=== PATIENT | male | born 1980 | race Caucasian/White ===

== ENCOUNTER 2021-10-11 05:36 | Inpatient (IN) | payer OTHER ==
[2021-10-11 09:05] LABS: BASO % 0.6 % (0-2.0); EOS % 0.1 % (0-4.5); HEMATOCRIT 30.7 % (35.4-49); HEMOGLOBIN 9.9 GM/dL (11.7-16.9); LYMPH % 7.8 % (8-40); MCH 26.7 pg (25.7-33.7); MCHC 32.2 g/dl (32.0-35.9); MEAN CELL VOLUME 83.1 fl (80-96); MEAN PLT VOLUME 7.5 fl (7.5-11.1); MONO % 10.1 % (3.8-10.2); NEUT % 81.4 % (42.8-82.8); PLATELET COUNT 481 10^3/uL (134-434); RBC 3.69 M/mm3 (4.00-5.60); RDW 14.9 % (11.9-15.9); WHITE BLOOD COUNT 13.1 K/mm3 (4.0-10.0)
[2021-10-11 09:13] LABS: INR 1.45 (0.83-1.09); PROTHROMBIN TIME (PATIENT) 16.7 SEC (9.7-13.0)
[2021-10-11] MEDS ORDERED: ENOXAPARIN NA (PORCINE) 40 MG/0.4 ML DISP.SYRIN SQ SCH (10:00)
[2021-10-11 10:01] LABS: CHLORIDE 99 mmol/L (98-107); SODIUM 133 mmol/L (136-145)
[2021-10-11 10:15] LABS: ALBUMIN 2.4 g/dl (3.4-5.0); BLOOD UREA NITROGEN 8.3 mg/dL (7-18); CALCIUM 8.8 mg/dL (8.5-10.1); GLUCOSE,RANDOM 118 mg/dL (74-106)
[2021-10-11 10:18] LABS: ANION GAP 6 MMOL/L (8-16); CO2 27 mmol/L (21-32); CREATININE 0.6 mg/dL (0.55-1.3); SGOT/AST 36 U/L (15-37); SGPT/ALT 27 U/L (13-61)
[2021-10-11 10:20] LABS: BILIRUBIN,TOTAL 0.5 mg/dL (0.2-1); TOT PROT 7.9 g/dl (6.4-8.2)
[2021-10-11 10:21] LABS: ALK PHOS 139 U/L (45-117)
[2021-10-11 10:38] LABS: HIV INTERPRETATION NEGATIVE (NEGATIVE)
[2021-10-11] MEDS ORDERED: SODIUM CHLORIDE 1,000 ML IV SCH (11:00)
[2021-10-11] MEDS ORDERED: AZITHROMYCIN IVPB 500 MG/250 ML BAG IVPB SCH (13:00)
[2021-10-11] MEDS: INSULIN SLIDING SCALE (NOVOLOG) 1 VIAL SQ SCH ×2 (18:00→18:54)
[2021-10-11] MEDS: CEFTRIAXONE 1 GM in DEXTROSE 5%-WATER - 50 ML IVPB SCH (18:00)
[2021-10-11] MEDS ORDERED: CEFTRIAXONE 1 GM/50 ML BAG ONE (18:38)
[2021-10-12] MEDS: INSULIN SLIDING SCALE (NOVOLOG) 1 VIAL SQ SCH ×4 (07:14→21:45)
[2021-10-12 09:10] LABS: EPI CELLS 10 /uL (0-25.1); HYALINE CASTS 2 /uL (0-3.1); PH,URINE 6.5 (5.0-8.0); URINE APPEARANCE CLEAR; URINE BACTERIA 2 /uL (0-1359); URINE BILIRUBIN NEGATIVE (NEGATIVE); URINE COLOR YELLOW; URINE GLUCOSE (UA) NEGATIVE (NEGATIVE); URINE KETONE 1+ (NEGATIVE); URINE LEUK ESTERASE NEGATIVE (NEGATIVE); URINE NITRITE NEGATIVE (NEGATIVE); URINE PROTEIN 1+ (NEGATIVE); URINE RBC 26 /uL (0-23.9); URINE WBC 9 /uL (0-25.8)
[2021-10-12] MEDS ORDERED: cefTRIAXone SODIUM 1 GM VIAL ONE (09:28)
[2021-10-12] MEDS ORDERED: DEXTROSE 5%-WATER - 50 ML IVPB ONE (09:28)
[2021-10-12] MEDS ORDERED: SODIUM CHLORIDE 0.9% 500 ML INFUS.BAG IV ONE (09:30)
[2021-10-12] MEDS: CEFTRIAXONE 1 GM in DEXTROSE 5%-WATER - 50 ML IVPB SCH (09:47)
[2021-10-12 09:55] LABS: BASO % 0.9 % (0-2.0); HEMATOCRIT 27.5 % (35.4-49); LYMPH % 12.6 % (8-40); MCH 27.6 pg (25.7-33.7); MCHC 32.9 g/dl (32.0-35.9); MEAN PLT VOLUME 7.5 fl (7.5-11.1); MONO % 12.5 % (3.8-10.2); PLATELET COUNT 493 10^3/uL (134-434); RBC 3.27 M/mm3 (4.00-5.60); WHITE BLOOD COUNT 10.3 K/mm3 (4.0-10.0)
[2021-10-12 10:10] LABS: CALCIUM 8.3 mg/dL (8.5-10.1)
[2021-10-12 10:11] LABS: ALBUMIN 2.2 g/dl (3.4-5.0); BLOOD UREA NITROGEN 7.5 mg/dL (7-18)
[2021-10-12 10:13] LABS: CREATININE 0.3 mg/dL (0.55-1.3); MAGNESIUM 2.3 mg/dL (1.8-2.4); PHOSPHOROUS 3.5 mg/dL (2.5-4.9)
[2021-10-12 10:15] LABS: BILIRUBIN,TOTAL 0.4 mg/dL (0.2-1); TOT PROT 7.1 g/dl (6.4-8.2)
[2021-10-12] MEDS: SODIUM CHLORIDE 1,000 ML IV SCH (17:41)
[2021-10-13] MEDS: SODIUM CHLORIDE 1,000 ML IV SCH ×2 (03:57→14:51)
[2021-10-13] MEDS: INSULIN SLIDING SCALE (NOVOLOG) 1 VIAL SQ SCH ×4 (06:25→21:08)
[2021-10-13 10:44] LABS: BASO % 0.8 % (0-2.0); EOS % 0.9 % (0-4.5); HEMATOCRIT 27.1 % (35.4-49); HEMOGLOBIN 8.7 GM/dL (11.7-16.9); LYMPH % 13.5 % (8-40); MCH 27.1 pg (25.7-33.7); MCHC 32.3 g/dl (32.0-35.9); MEAN CELL VOLUME 84.1 fl (80-96); MEAN PLT VOLUME 7.5 fl (7.5-11.1); MONO % 11.2 % (3.8-10.2); NEUT % 73.6 % (42.8-82.8); PLATELET COUNT 510 10^3/uL (134-434); RBC 3.22 M/mm3 (4.00-5.60); WHITE BLOOD COUNT 9.8 K/mm3 (4.0-10.0)
[2021-10-13 11:09] LABS: CALCIUM 8.6 mg/dL (8.5-10.1)
[2021-10-13] MEDS ORDERED: cefTRIAXone SODIUM 1 GM VIAL ONE (11:09)
[2021-10-13] MEDS ORDERED: DEXTROSE 5%-WATER - 50 ML IVPB ONE (11:09)
[2021-10-13 11:10] LABS: MAGNESIUM 2.1 mg/dL (1.8-2.4)
[2021-10-13 11:12] LABS: CREATININE 0.4 mg/dL (0.55-1.3)
[2021-10-13 11:13] LABS: PHOSPHOROUS 3.2 mg/dL (2.5-4.9)
[2021-10-13] MEDS: CEFTRIAXONE 1 GM in DEXTROSE 5%-WATER - 50 ML IVPB SCH (11:13)
[2021-10-13 11:14] LABS: BILIRUBIN,TOTAL 0.2 mg/dL (0.2-1); TOT PROT 6.8 g/dl (6.4-8.2)
[2021-10-13 20:49] VITALS: BMI 19.1
[2021-10-14] MEDS: INSULIN SLIDING SCALE (NOVOLOG) 1 VIAL SQ SCH ×2 (06:22→11:24)
[2021-10-14] MEDS: ISONIAZID 300 MG TABLET (FP) PO SCH (09:58)
[2021-10-14] MEDS: ETHAMBUTOL HCL 400 MG TABLET PO SCH (09:58)
[2021-10-14] MEDS: PYRIDOXINE HCL (B-6) 50 MG TABLET (FP) PO SCH (09:59)
[2021-10-14] MEDS: PYRAZINAMIDE 500 MG TABLET PO SCH (10:00)
[2021-10-14 10:09] LABS: BASO % 0.6 % (0-2.0); EOS % 0.8 % (0-4.5); HEMATOCRIT 28.4 % (35.4-49); HEMOGLOBIN 9.1 GM/dL (11.7-16.9); LYMPH % 11.5 % (8-40); MCHC 32.1 g/dl (32.0-35.9); MEAN CELL VOLUME 84.1 fl (80-96); MEAN PLT VOLUME 7.3 fl (7.5-11.1); NEUT % 77.1 % (42.8-82.8); PLATELET COUNT 587 10^3/uL (134-434); RBC 3.37 M/mm3 (4.00-5.60); RDW 15.1 % (11.9-15.9); WHITE BLOOD COUNT 10.8 K/mm3 (4.0-10.0)
[2021-10-14 10:27] LABS: CALCIUM 8.9 mg/dL (8.5-10.1)
[2021-10-14 10:28] LABS: ALBUMIN 2.2 g/dl (3.4-5.0); BLOOD UREA NITROGEN 4.9 mg/dL (7-18); MAGNESIUM 2.2 mg/dL (1.8-2.4)
[2021-10-14 10:31] LABS: CREATININE 0.5 mg/dL (0.55-1.3); PHOSPHOROUS 3.6 mg/dL (2.5-4.9)
[2021-10-14 10:32] LABS: BILIRUBIN,TOTAL 0.2 mg/dL (0.2-1); TOT PROT 7.2 g/dl (6.4-8.2)
[2021-10-14] MEDS: RIFAMPIN 300 MG CAPSULE PO SCH (10:43)
[2021-10-15 09:27] LABS: BASO % 0.6 % (0-2.0); EOS % 0.5 % (0-4.5); HEMATOCRIT 28.9 % (35.4-49); HEMOGLOBIN 9.7 GM/dL (11.7-16.9); LYMPH % 14.7 % (8-40); MCH 27.9 pg (25.7-33.7); MCHC 33.6 g/dl (32.0-35.9); MEAN CELL VOLUME 82.9 fl (80-96); MEAN PLT VOLUME 6.8 fl (7.5-11.1); MONO % 10.4 % (3.8-10.2); NEUT % 73.8 % (42.8-82.8); PLATELET COUNT 612 10^3/uL (134-434); RBC 3.49 M/mm3 (4.00-5.60); RDW 14.9 % (11.9-15.9)
[2021-10-15 09:47] LABS: ALBUMIN 2.5 g/dl (3.4-5.0); BLOOD UREA NITROGEN 9.2 mg/dL (7-18); CALCIUM 9.1 mg/dL (8.5-10.1); MAGNESIUM 2.3 mg/dL (1.8-2.4)
[2021-10-15 09:51] LABS: CREATININE 0.5 mg/dL (0.55-1.3)
[2021-10-15 09:53] LABS: BILIRUBIN,TOTAL 0.4 mg/dL (0.2-1); TOT PROT 7.7 g/dl (6.4-8.2)
[2021-10-15] MEDS: PYRIDOXINE HCL (B-6) 50 MG TABLET (FP) PO SCH (10:18)
[2021-10-15] MEDS: ISONIAZID 300 MG TABLET (FP) PO SCH (10:18)
[2021-10-15] MEDS: ETHAMBUTOL HCL 400 MG TABLET PO SCH (10:20)
[2021-10-15] MEDS: PYRAZINAMIDE 500 MG TABLET PO SCH (10:20)
[2021-10-15] MEDS: RIFAMPIN 300 MG CAPSULE PO SCH (10:21)
[2021-10-15] MEDS: BENZOCAINE/MENTHOL 1 EACH LOZENGE MM PRN (15:50)
[2021-10-16 08:41] LABS: BASO % 0.6 % (0-2.0); EOS % 1.7 % (0-4.5); HEMATOCRIT 28.6 % (35.4-49); HEMOGLOBIN 9.4 GM/dL (11.7-16.9); LYMPH % 15.1 % (8-40); MCH 27.4 pg (25.7-33.7); MEAN CELL VOLUME 83.2 fl (80-96); MEAN PLT VOLUME 6.8 fl (7.5-11.1); MONO % 10.7 % (3.8-10.2); NEUT % 71.9 % (42.8-82.8); PLATELET COUNT 670 10^3/uL (134-434); RBC 3.43 M/mm3 (4.00-5.60); RDW 15.2 % (11.9-15.9); WHITE BLOOD COUNT 11.6 K/mm3 (4.0-10.0)
[2021-10-16 08:49] LABS: CALCIUM 8.9 mg/dL (8.5-10.1)
[2021-10-16 08:50] LABS: ALBUMIN 2.5 g/dl (3.4-5.0); MAGNESIUM 2.4 mg/dL (1.8-2.4)
[2021-10-16 08:53] LABS: CREATININE 0.5 mg/dL (0.55-1.3); PHOSPHOROUS 3.8 mg/dL (2.5-4.9)
[2021-10-16 08:54] LABS: BILIRUBIN,TOTAL 0.5 mg/dL (0.2-1); TOT PROT 7.8 g/dl (6.4-8.2)
[2021-10-16] MEDS: ISONIAZID 300 MG TABLET (FP) PO SCH (09:55)
[2021-10-16] MEDS: ETHAMBUTOL HCL 400 MG TABLET PO SCH (09:55)
[2021-10-16] MEDS: PYRIDOXINE HCL (B-6) 50 MG TABLET (FP) PO SCH (09:56)
[2021-10-16] MEDS: PYRAZINAMIDE 500 MG TABLET PO SCH (09:56)
[2021-10-16] MEDS: RIFAMPIN 300 MG CAPSULE PO SCH (09:56)
[2021-10-17 10:04] LABS: BASO % 0.7 % (0-2.0); EOS % 1.5 % (0-4.5); HEMATOCRIT 31.1 % (35.4-49); LYMPH % 14.2 % (8-40); MCHC 32.1 g/dl (32.0-35.9); MEAN CELL VOLUME 84.2 fl (80-96); MEAN PLT VOLUME 7.1 fl (7.5-11.1); MONO % 7.3 % (3.8-10.2); NEUT % 76.3 % (42.8-82.8); PLATELET COUNT 730 10^3/uL (134-434); RBC 3.69 M/mm3 (4.00-5.60); WHITE BLOOD COUNT 11.2 K/mm3 (4.0-10.0)
[2021-10-17] MEDS ORDERED: ONDANSETRON 4 MG/2 ML VIAL IVPUSH PRN (10:21)
[2021-10-17] MEDS: PYRAZINAMIDE 500 MG TABLET PO SCH (10:36)
[2021-10-17] MEDS: ETHAMBUTOL HCL 400 MG TABLET PO SCH (10:37)
[2021-10-17] MEDS: PYRIDOXINE HCL (B-6) 50 MG TABLET (FP) PO SCH (10:38)
[2021-10-17] MEDS: ISONIAZID 300 MG TABLET (FP) PO SCH (10:38)
[2021-10-17] MEDS: RIFAMPIN 300 MG CAPSULE PO SCH (10:39)
[2021-10-17] MEDS: BENZOCAINE/MENTHOL 1 EACH LOZENGE MM PRN (10:41)
[2021-10-17 11:12] LABS: BLOOD UREA NITROGEN 8.7 mg/dL (7-18)
[2021-10-17 11:13] LABS: CALCIUM 9.4 mg/dL (8.5-10.1)
[2021-10-17 11:14] LABS: ALBUMIN 2.6 g/dl (3.4-5.0); MAGNESIUM 2.4 mg/dL (1.8-2.4)
[2021-10-17 11:16] LABS: PHOSPHOROUS 4.3 mg/dL (2.5-4.9)
[2021-10-17 11:17] LABS: CREATININE 0.5 mg/dL (0.55-1.3)
[2021-10-17 11:18] LABS: BILIRUBIN,TOTAL 0.2 mg/dL (0.2-1); TOT PROT 8.2 g/dl (6.4-8.2)
[2021-10-18] MEDS: SODIUM CHLORIDE 1,000 ML IV SCH ×2 (09:32→21:29)
[2021-10-18] MEDS: ETHAMBUTOL HCL 400 MG TABLET PO SCH (09:33)
[2021-10-18] MEDS: ISONIAZID 300 MG TABLET (FP) PO SCH (09:33)
[2021-10-18] MEDS: RIFAMPIN 300 MG CAPSULE PO SCH (09:34)
[2021-10-18] MEDS: PYRAZINAMIDE 500 MG TABLET PO SCH (09:34)
[2021-10-18] MEDS: PYRIDOXINE HCL (B-6) 50 MG TABLET (FP) PO SCH (09:34)
[2021-10-18] MEDS: BENZOCAINE/MENTHOL 1 EACH LOZENGE MM PRN (09:36)
[2021-10-18 09:56] LABS: BASO % 0.5 % (0-2.0); EOS % 1.5 % (0-4.5); HEMOGLOBIN 8.9 GM/dL (11.7-16.9); LYMPH % 13.3 % (8-40); MCH 26.9 pg (25.7-33.7); MCHC 31.9 g/dl (32.0-35.9); MEAN CELL VOLUME 84.3 fl (80-96); MEAN PLT VOLUME 6.9 fl (7.5-11.1); NEUT % 78.7 % (42.8-82.8); PLATELET COUNT 763 10^3/uL (134-434); RBC 3.32 M/mm3 (4.00-5.60); RDW 15.1 % (11.9-15.9); WHITE BLOOD COUNT 11.3 K/mm3 (4.0-10.0)
[2021-10-18 10:23] LABS: ALBUMIN 2.4 g/dl (3.4-5.0); CALCIUM 8.9 mg/dL (8.5-10.1); MAGNESIUM 2.2 mg/dL (1.8-2.4)
[2021-10-18 10:26] LABS: CREATININE 0.6 mg/dL (0.55-1.3)
[2021-10-18 10:28] LABS: BILIRUBIN,TOTAL 0.2 mg/dL (0.2-1); TOT PROT 7.3 g/dl (6.4-8.2)
[2021-10-19] MEDS: SODIUM CHLORIDE 1,000 ML IV SCH ×2 (06:45→10:44)
[2021-10-19 08:56] LABS: BASO % 0.7 % (0-2.0); EOS % 2.4 % (0-4.5); HEMATOCRIT 27.4 % (35.4-49); HEMOGLOBIN 9.1 GM/dL (11.7-16.9); LYMPH % 14.6 % (8-40); MCHC 33.4 g/dl (32.0-35.9); MEAN CELL VOLUME 83.8 fl (80-96); MEAN PLT VOLUME 6.5 fl (7.5-11.1); MONO % 6.8 % (3.8-10.2); NEUT % 75.5 % (42.8-82.8); PLATELET COUNT 713 10^3/uL (134-434); RBC 3.26 M/mm3 (4.00-5.60); RDW 15.2 % (11.9-15.9)
[2021-10-19 09:08] LABS: ALBUMIN 2.2 g/dl (3.4-5.0); BLOOD UREA NITROGEN 4.6 mg/dL (7-18); CALCIUM 8.8 mg/dL (8.5-10.1)
[2021-10-19 09:09] LABS: MAGNESIUM 2.1 mg/dL (1.8-2.4)
[2021-10-19 09:11] LABS: CREATININE 0.4 mg/dL (0.55-1.3); PHOSPHOROUS 4.1 mg/dL (2.5-4.9)
[2021-10-19 09:13] LABS: BILIRUBIN,TOTAL 0.2 mg/dL (0.2-1); TOT PROT 6.9 g/dl (6.4-8.2)
[2021-10-19] MEDS: PYRAZINAMIDE 500 MG TABLET PO SCH (10:45)
[2021-10-19] MEDS: PYRIDOXINE HCL (B-6) 50 MG TABLET (FP) PO SCH (10:45)
[2021-10-19] MEDS: ETHAMBUTOL HCL 400 MG TABLET PO SCH (10:45)
[2021-10-19] MEDS: ISONIAZID 300 MG TABLET (FP) PO SCH (10:45)
[2021-10-19] MEDS: RIFAMPIN 300 MG CAPSULE PO SCH (10:46)
[2021-10-19] MEDS ORDERED: SODIUM CHLORIDE 250 ML IV STA (14:03)
[2021-10-20] MEDS: SODIUM CHLORIDE 1,000 ML IV SCH ×3 (04:49→21:37)
[2021-10-20 08:54] LABS: BASO % 0.4 % (0-2.0); HEMATOCRIT 29.9 % (35.4-49); HEMOGLOBIN 10.1 GM/dL (11.7-16.9); LYMPH % 16.3 % (8-40); MCH 28.4 pg (25.7-33.7); MCHC 33.7 g/dl (32.0-35.9); MEAN CELL VOLUME 84.2 fl (80-96); MEAN PLT VOLUME 6.7 fl (7.5-11.1); MONO % 6.1 % (3.8-10.2); NEUT % 75.2 % (42.8-82.8); PLATELET COUNT 787 10^3/uL (134-434); RBC 3.55 M/mm3 (4.00-5.60); RDW 15.4 % (11.9-15.9); WHITE BLOOD COUNT 13.3 K/mm3 (4.0-10.0)
[2021-10-20 08:56] LABS: ALBUMIN 2.5 g/dl (3.4-5.0); CALCIUM 8.8 mg/dL (8.5-10.1)
[2021-10-20 08:59] LABS: CREATININE 0.5 mg/dL (0.55-1.3)
[2021-10-20 09:00] LABS: BLOOD UREA NITROGEN 5.8 mg/dL (7-18); MAGNESIUM 2.1 mg/dL (1.8-2.4)
[2021-10-20 09:01] LABS: BILIRUBIN,TOTAL 0.2 mg/dL (0.2-1); TOT PROT 7.7 g/dl (6.4-8.2)
[2021-10-20 09:02] LABS: PHOSPHOROUS 4.3 mg/dL (2.5-4.9)
[2021-10-20] MEDS: ETHAMBUTOL HCL 400 MG TABLET PO SCH (10:06)
[2021-10-20] MEDS: ISONIAZID 300 MG TABLET (FP) PO SCH (10:06)
[2021-10-20] MEDS: PYRAZINAMIDE 500 MG TABLET PO SCH (10:07)
[2021-10-20] MEDS: RIFAMPIN 300 MG CAPSULE PO SCH (10:09)
[2021-10-20] MEDS: PYRIDOXINE HCL (B-6) 50 MG TABLET (FP) PO SCH (10:09)
[2021-10-21] MEDS ORDERED: POLYETHYLENE GLYCOL (HEALTHYLAX) 3350 17 GM PACKET PO PRN (08:31)
[2021-10-21 09:58] LABS: BASO % 0.6 % (0-2.0); EOS % 1.9 % (0-4.5); HEMATOCRIT 28.2 % (35.4-49); HEMOGLOBIN 9.1 GM/dL (11.7-16.9); LYMPH % 11.3 % (8-40); MCH 27.5 pg (25.7-33.7); MCHC 32.5 g/dl (32.0-35.9); MEAN CELL VOLUME 84.7 fl (80-96); MEAN PLT VOLUME 6.9 fl (7.5-11.1); MONO % 5.4 % (3.8-10.2); NEUT % 80.8 % (42.8-82.8); PLATELET COUNT 716 10^3/uL (134-434); RBC 3.33 M/mm3 (4.00-5.60)
[2021-10-21 10:16] LABS: CALCIUM 8.7 mg/dL (8.5-10.1)
[2021-10-21 10:18] LABS: ALBUMIN 2.3 g/dl (3.4-5.0); MAGNESIUM 2.1 mg/dL (1.8-2.4)
[2021-10-21 10:20] LABS: CREATININE 0.5 mg/dL (0.55-1.3)
[2021-10-21 10:23] LABS: BILIRUBIN,TOTAL 0.3 mg/dL (0.2-1); PHOSPHOROUS 4.1 mg/dL (2.5-4.9)
[2021-10-21] MEDS: ENOXAPARIN NA (PORCINE) 40 MG/0.4 ML DISP.SYRIN SQ SCH (11:24)
[2021-10-21] MEDS: PYRIDOXINE HCL (B-6) 50 MG TABLET (FP) PO SCH (11:26)
[2021-10-21] MEDS: ETHAMBUTOL HCL 400 MG TABLET PO SCH (11:26)
[2021-10-21] MEDS: RIFAMPIN 300 MG CAPSULE PO SCH (11:26)
[2021-10-21] MEDS: PYRAZINAMIDE 500 MG TABLET PO SCH (11:26)
[2021-10-21] MEDS: ISONIAZID 300 MG TABLET (FP) PO SCH (11:26)
[2021-10-21] MEDS: SODIUM CHLORIDE 1,000 ML IV SCH (13:19)
[2021-10-22 09:10] LABS: BASO % 0.5 % (0-2.0); EOS % 2.4 % (0-4.5); HEMATOCRIT 28.7 % (35.4-49); HEMOGLOBIN 9.8 GM/dL (11.7-16.9); LYMPH % 12.7 % (8-40); MCH 28.5 pg (25.7-33.7); MCHC 34.1 g/dl (32.0-35.9); MEAN CELL VOLUME 83.7 fl (80-96); MEAN PLT VOLUME 6.5 fl (7.5-11.1); MONO % 7.9 % (3.8-10.2); NEUT % 76.5 % (42.8-82.8); PLATELET COUNT 737 10^3/uL (134-434); RBC 3.43 M/mm3 (4.00-5.60); WHITE BLOOD COUNT 10.5 K/mm3 (4.0-10.0)
[2021-10-22 09:26] LABS: CALCIUM 9.3 mg/dL (8.5-10.1)
[2021-10-22 09:28] LABS: ALBUMIN 2.6 g/dl (3.4-5.0); BLOOD UREA NITROGEN 6.7 mg/dL (7-18); MAGNESIUM 2.1 mg/dL (1.8-2.4)
[2021-10-22 09:31] LABS: CREATININE 0.5 mg/dL (0.55-1.3)
[2021-10-22 09:32] LABS: PHOSPHOROUS 4.6 mg/dL (2.5-4.9); TOT PROT 7.4 g/dl (6.4-8.2)
[2021-10-22 09:34] LABS: BILIRUBIN,TOTAL 0.3 mg/dL (0.2-1)
[2021-10-22] MEDS: ISONIAZID 300 MG TABLET (FP) PO SCH (09:58)
[2021-10-22] MEDS: ENOXAPARIN NA (PORCINE) 40 MG/0.4 ML DISP.SYRIN SQ SCH (09:58)
[2021-10-22] MEDS: ETHAMBUTOL HCL 400 MG TABLET PO SCH (09:59)
[2021-10-22] MEDS: PYRIDOXINE HCL (B-6) 50 MG TABLET (FP) PO SCH (09:59)
[2021-10-22] MEDS: PYRAZINAMIDE 500 MG TABLET PO SCH (09:59)
[2021-10-22] MEDS: RIFAMPIN 300 MG CAPSULE PO SCH (09:59)
[2021-10-22] MEDS: SODIUM CHLORIDE 1,000 ML IV SCH (14:43)
[2021-10-23] MEDS: RIFAMPIN 300 MG CAPSULE PO SCH (10:28)
[2021-10-23] MEDS: ETHAMBUTOL HCL 400 MG TABLET PO SCH (10:28)
[2021-10-23] MEDS: ISONIAZID 300 MG TABLET (FP) PO SCH (10:28)
[2021-10-23] MEDS: ENOXAPARIN NA (PORCINE) 40 MG/0.4 ML DISP.SYRIN SQ SCH (10:28)
[2021-10-23] MEDS: PYRIDOXINE HCL (B-6) 50 MG TABLET (FP) PO SCH (10:28)
[2021-10-23] MEDS: PYRAZINAMIDE 500 MG TABLET PO SCH (10:28)
[2021-10-24] MEDS: SODIUM CHLORIDE 1,000 ML IV SCH ×3 (03:44→13:52)
[2021-10-24] MEDS: RIFAMPIN 300 MG CAPSULE PO SCH (09:45)
[2021-10-24] MEDS: ETHAMBUTOL HCL 400 MG TABLET PO SCH (09:46)
[2021-10-24] MEDS: ISONIAZID 300 MG TABLET (FP) PO SCH (09:47)
[2021-10-24] MEDS: PYRAZINAMIDE 500 MG TABLET PO SCH (09:47)
[2021-10-24] MEDS: PYRIDOXINE HCL (B-6) 50 MG TABLET (FP) PO SCH (09:48)
[2021-10-24 10:25] LABS: BASO % 0.5 % (0-2.0); EOS % 2.2 % (0-4.5); HEMATOCRIT 29.6 % (35.4-49); HEMOGLOBIN 9.6 GM/dL (11.7-16.9); LYMPH % 13.4 % (8-40); MCH 27.5 pg (25.7-33.7); MCHC 32.5 g/dl (32.0-35.9); MEAN CELL VOLUME 84.6 fl (80-96); MEAN PLT VOLUME 6.8 fl (7.5-11.1); MONO % 7.6 % (3.8-10.2); NEUT % 76.3 % (42.8-82.8); PLATELET COUNT 679 10^3/uL (134-434); RDW 16.3 % (11.9-15.9); WHITE BLOOD COUNT 12.2 K/mm3 (4.0-10.0)
[2021-10-24 10:42] LABS: CALCIUM 8.7 mg/dL (8.5-10.1); MAGNESIUM 2.1 mg/dL (1.8-2.4)
[2021-10-24 10:43] LABS: BLOOD UREA NITROGEN 7.3 mg/dL (7-18)
[2021-10-24 10:46] LABS: CREATININE 0.5 mg/dL (0.55-1.3)
[2021-10-24] MEDS: ENOXAPARIN NA (PORCINE) 40 MG/0.4 ML DISP.SYRIN SQ SCH (10:55)
[2021-10-25] MEDS: SODIUM CHLORIDE 1,000 ML IV SCH ×2 (01:12→09:41)
[2021-10-25] MEDS: ISONIAZID 300 MG TABLET (FP) PO SCH (09:35)
[2021-10-25] MEDS: PYRIDOXINE HCL (B-6) 50 MG TABLET (FP) PO SCH (09:35)
[2021-10-25] MEDS: ENOXAPARIN NA (PORCINE) 40 MG/0.4 ML DISP.SYRIN SQ SCH (09:35)
[2021-10-25] MEDS: ETHAMBUTOL HCL 400 MG TABLET PO SCH (09:38)
[2021-10-25] MEDS: RIFAMPIN 300 MG CAPSULE PO SCH (09:39)
[2021-10-25] MEDS: PYRAZINAMIDE 500 MG TABLET PO SCH (09:40)
[2021-10-25 12:36] LABS: BASO % 0.7 % (0-2.0); EOS % 2.6 % (0-4.5); HEMATOCRIT 29.8 % (35.4-49); HEMOGLOBIN 9.6 GM/dL (11.7-16.9); LYMPH % 12.9 % (8-40); MCH 27.4 pg (25.7-33.7); MCHC 32.1 g/dl (32.0-35.9); MEAN CELL VOLUME 85.4 fl (80-96); MONO % 9.3 % (3.8-10.2); NEUT % 74.5 % (42.8-82.8); PLATELET COUNT 679 10^3/uL (134-434); RDW 16.1 % (11.9-15.9); WHITE BLOOD COUNT 11.8 K/mm3 (4.0-10.0)
[2021-10-25 12:55] LABS: ALBUMIN 2.7 g/dl (3.4-5.0); BLOOD UREA NITROGEN 8.3 mg/dL (7-18); MAGNESIUM 2.2 mg/dL (1.8-2.4)
[2021-10-25 12:58] LABS: CREATININE 0.5 mg/dL (0.55-1.3); PHOSPHOROUS 4.4 mg/dL (2.5-4.9)
[2021-10-25 12:59] LABS: BILIRUBIN,TOTAL 0.6 mg/dL (0.2-1)
[2021-10-25 13:01] LABS: TOT PROT 7.8 g/dl (6.4-8.2)
[2021-10-25 13:58] VITALS: BP 117/67; PULSE 113; TEMP 99.2
== END 2021-10-25 17:31 | disposition home or self-care (01) | DRG 137 ==
LOC: JER 05:36 → EDBD 05:36 → JERBED 08:45 → J6S 10-12 01:37
PROVIDERS: ADMIT Internal Medicine; ATTEND Internal Medicine
DX: A15.0 Tuberculosis of lung (principal); D62 Acute posthemorrhagic anemia; J18.9 Pneumonia, unspecified organism; J90 Pleural effusion, not elsewhere classified; E11.9 Type 2 diabetes mellitus without complications; D75.839 Thrombocytosis, unspecified; R91.8 Other nonspecific abnormal finding of lung field; R63.4 Abnormal weight loss; Z68.1 Body mass index [BMI] 19.9 or less, adult; E87.1 Hypo-osmolality and hyponatremia; E86.9 Volume depletion, unspecified; I95.9 Hypotension, unspecified
CPT/HCPCS: 36415; 71046-TC-FY; 71250-TC; 80048; 80053; 81003; 82728; 82962; 83036; 83540; 83550; 83735; 84100; 84484; 85025; 85610; 86480; 86705; 86708; 86803; 86850; 86900; 86901; 87040; 87070; 87081; 87102; 87116; 87205; 87206; 87210; 87305; 87340; 87389; 87449; 87517; 87556; 87899; 93005; 93010; 99285-25; C9803-CS; U0003; U0005